=== PATIENT | female | born 1950 | race Caucasian/White ===

== ENCOUNTER 2016-10-15 09:49 | Emergency (ER) | payer OTHER ==
[~2016-10-15] VITALS: Ht 157.5 cm; Wt 93.1 kg
[~2016-10-15 09:49] MED LIST: ATENOLOL50 M1 NG; CARTIA XT120 MG PO; CENTRUM SILVER1 EACH PO; CYCLOSPORINE; DARVOCET-N 1001 EAC1 PO; FERROGELS FORT1 EACH PO; FUROSEMIDE40 MG PO; IMURAN50 MG PO; OMEGA 3 1,0001 EAC1 PO; OSCAL, OYSTER500 MG PO; PREVACID30 MG PO; PROZAC20 MG PO; TRILIPIX135 MG PO; XANAX0.5 MG PO; ZETIA10 MG PO; ZOCOR40 MG PO; ZYRTEC10 M2 PO
[2016-10-15 11:50] LABS: EOSINOPHIL (%) 0.3 % (0-5); HEMATOCRIT 36.2 % (36.0-46.0); IMMATURE GRANULOCYTE (%) 0.2 % (0.0-0.7); IMMATURE GRANULOCYTE COUNT 0.1 K/uL; LYMPHOCYTE COUNT 0.7 K/uL (1.0-2.8); MCH 29.3 PG (29.0-34.0); MCHC 31.2 G/DL (30.0-36.0); MCV 93.8 FL (83-99); MEAN PLAT.VOLUME 10.1 uM^3 (9.5-12.4); MONOCYTE (%) 4.2 % (3-12); MONOCYTE COUNT 0.3 K/uL (0-0.8); NEUTROPHIL (%) 83.3 % (45-76); NEUTROPHIL COUNT 5.2 K/uL (1.8-6.4); PLATELET COUNT 149 K/uL (156-360); RBC DIS.WIDTH-SD 46.1 % (39-53); RED BLOOD COUNT 3.86 M/uL (3.80-5.20); WHITE BLOOD COUNT 6.2 K/uL (4.1-10.2)
[2016-10-15 12:00] LABS: CHLORIDE 110 mEq/L (99-109); INTER. NORMALIZED RATIO 1.1; POTASSIUM 5.4 mEq/L (3.7-5.4); PROTHROMBIN TIME 11.4 (9.2-11.2); PTT 25.8 (25-32); SODIUM 139 mEq/L (136-147)
[2016-10-15 12:02] LABS: GLUCOSE 149 mg/dL (70-99)
[2016-10-15 12:04] LABS: ANION GAP 13 MEQ/L (2-14)
[2016-10-15 12:06] LABS: GFR ESTIMATE (CALCULATED) 11 mL/min/
[2016-10-15 12:07] LABS: UREA NITROGEN (BUN) 95 mg/dL (9-23)
[2016-10-15 12:11] LABS: TROP-I INTERPRETATION NEGATIVE; TROPONIN-I < 0.01 ng/mL (0.0-0.30)
[2016-10-15 12:13] LABS: ADD MIUA? YES; BILIRUBIN NEGATIVE; BLOOD NEGATIVE; COLOR YELLOW ((YELLOW)); GLUCOSE (STRIP) NEGATIVE; KETONES NEGATIVE; LEUKOCYTES NEGATIVE; NITRITE NEGATIVE; PROTEIN (STRIP) >=300; SPECIFIC GRAVITY 1.013 (1.000-1.030); UROBILINOGEN 0.2 MG/DL (0.2-1.0)
[2016-10-15 12:35] LABS: BACTERIA NONE SEEN; CASTS NONE SEEN /LPF; CRYSTALS NONE SEEN; EPITHELIAL CELLS RARE; MUCUS NONE SEEN; PATHOLOGICAL CAST NONE SEEN; RED BLOOD CELLS 0-5 /HPF (0-5); SMALL ROUND CELL NONE SEEN; UCUL ADDED? NO; WHITE BLOOD CELLS 0-5 /HPF (0-5); YEAST-LIKE CELL NONE SEEN
[2016-10-15 14:29] VITALS: BP 167/72
[2016-11-04] MEDS ORDERED: IRON325 M1 PO (09:14)
[2016-11-04] MEDS ORDERED: ZETIA10 MG PO (09:14)
[2016-11-04] MEDS ORDERED: ZYRTEC10 M2 PO (09:14)
[2016-11-04] MEDS ORDERED: ZOCOR10 MG PO (09:15)
[2016-11-04] MEDS ORDERED: OMEGA 3 500 SO1 EACH PO (09:16)
[2016-11-04] MEDS ORDERED: PROZAC20 MG PO (09:16)
[2016-11-04] MEDS ORDERED: PREVACID30 MG PO (09:17)
[2016-11-04] MEDS ORDERED: OS-CAL 500+D31 EACH PO (09:17)
[2016-11-04] MEDS ORDERED: XANAX0.5 MG PO (09:17)
[2016-11-04] MEDS ORDERED: IMURAN50 MG PO (09:18)
[2016-11-04] MEDS ORDERED: CYCLOSPORINE25 M2 PO ×2 (09:19)
[2016-11-04] MEDS ORDERED: BYSTOLIC10 MG PO (09:19)
[2016-11-04] MEDS ORDERED: AMARYL1 MG PO (09:20)
[2016-11-04] MEDS ORDERED: ISOSORBIDE DINI20 MG PO (09:20)
[2016-11-04] MEDS ORDERED: HYTRIN5 MG PO (09:21)
[2016-11-04] MEDS ORDERED: ZOFRAN4 MG PO (09:21)
[2016-11-04] MEDS ORDERED: APRESOLINE100 MG PO (09:21)
[2016-11-04] MEDS ORDERED: CYANOCOBALAM1000 MCG PO (09:22)
[2016-11-04] MEDS ORDERED: BUMEX1 MG PO (09:22)
[2016-11-04] MEDS ORDERED: NORCO 5/3251 TABLET PO (09:22)
== END 2016-10-15 14:50 | disposition home or self-care (01) ==
LOC: EME → EDBD 09:49 → EME 14:50
PROVIDERS: Emergency Medicine
DX: E16.1 Other hypoglycemia (principal); E11.9 Type 2 diabetes mellitus without complications; N19 Unspecified kidney failure; Z94.0 Kidney transplant status; R06.02 Shortness of breath; I10 Essential (primary) hypertension; G89.29 Other chronic pain
CPT/HCPCS: 70450; 71010; 80048; 81003; 82948; 83735; 84484; 85025; 85610; 85730; 93005; 99281; 99284

== ENCOUNTER 2016-11-06 07:25 | Day surgery (SDC) | payer OTHER ==
[~2016-11-06] VITALS: Ht 157.5 cm; Wt 91.0 kg
[~2016-11-06 07:25] MED LIST changes: +AMARYL1 MG PO; +APRESOLINE100 MG PO; +BUMEX1 MG PO; +BYSTOLIC10 MG PO; +CYANOCOBALAM1000 MCG PO; +CYCLOSPORINE25 M2 PO; +HYTRIN5 MG PO; +IRON325 M1 PO; +ISOSORBIDE DINI20 MG PO; +NORCO 5/3251 TABLET PO; +OMEGA 3 500 SO1 EACH PO; +OS-CAL 500+D31 EACH PO; +ZOCOR10 MG PO; +ZOFRAN4 MG PO
[2016-11-06 08:03] VITALS: BP 151/76
[2016-11-06 08:21] LABS: HEMATOCRIT 33.5 % (36.0-46.0); MCHC 30.4 G/DL (30.0-36.0); PLATELET COUNT 192 K/uL (156-360); RBC DIS.WIDTH-CV 14.4 % (11.8-14.6); RBC DIS.WIDTH-SD 48.9 % (39-53); RED BLOOD COUNT 3.64 M/uL (3.80-5.20); WHITE BLOOD COUNT 6.1 K/uL (4.1-10.2)
[2016-11-06 09:01] LABS: ANION GAP 11 MEQ/L (2-14); CHLORIDE 107 MEQ/L (99-109); GFR ESTIMATE (CALCULATED) 17 mL/min/; GLUCOSE 110 mg/dL (70-99); POTASSIUM 4.6 MEQ/L (3.7-5.4); SAMPLE HEMOLYSIS CHECK 0; SAMPLE ICTERIC CHECK 0; SAMPLE LIPEMIA CHECK 0; SODIUM 138 MEQ/L (136-147); UREA NITROGEN (BUN) 66 mg/dL (9-23)
[2016-11-06 11:50] VITALS: BP 140/72
[2016-11-06 12:58] VITALS: BP 155/73
== END 2016-11-06 13:15 | disposition home or self-care (01) ==
LOC: SDC 07:25
PROVIDERS: Surgery
PROC: 03180JD Bypass Left Brachial Artery to Upper Arm Vein with Synthetic Substitute, Open Approach (ICD-10-PCS; principal; 2016-11-06)
DX: I12.0 Hypertensive chronic kidney disease with stage 5 chronic kidney disease or end stage renal disease (principal); E11.22 Type 2 diabetes mellitus with diabetic chronic kidney disease; N18.6 End stage renal disease; G47.30 Sleep apnea, unspecified; M19.90 Unspecified osteoarthritis, unspecified site; Z94.0 Kidney transplant status; E66.9 Obesity, unspecified; Z68.36 Body mass index [BMI] 36.0-36.9, adult; Z96.649 Presence of unspecified artificial hip joint; Z79.84 Long term (current) use of oral hypoglycemic drugs; Z88.0 Allergy status to penicillin; Z88.5 Allergy status to narcotic agent; Z88.6 Allergy status to analgesic agent; Z88.8 Allergy status to other drugs, medicaments and biological substances; Z91.041 Radiographic dye allergy status; Z82.49 Family history of ischemic heart disease and other diseases of the circulatory system; Z82.3 Family history of stroke; Z80.3 Family history of malignant neoplasm of breast; Z80.1 Family history of malignant neoplasm of trachea, bronchus and lung
CPT/HCPCS: 80048; 82948; 85027; C2628; J0690; J1170; J1644; J2250; J2405; J2720; J3010

== ENCOUNTER 2016-12-04 07:07 | Day surgery (SDC) | payer OTHER ==
[~2016-12-04] VITALS: Ht 157.5 cm; Wt 93.9 kg
[2016-12-04 07:51] LABS: HEMATOCRIT 27.3 % (36.0-46.0); MCH 29.7 PG (29.0-34.0); MCHC 31.1 G/DL (30.0-36.0); MCV 95.5 FL (83-99); MEAN PLAT.VOLUME 10.2 uM^3 (9.5-12.4); PLATELET COUNT 149 K/uL (156-360); RBC DIS.WIDTH-CV 15.3 % (11.8-14.6); RBC DIS.WIDTH-SD 53.2 % (39-53); WHITE BLOOD COUNT 4.6 K/uL (4.1-10.2)
[2016-12-04 07:52] LABS: RED BLOOD COUNT 2.86 M/uL (3.80-5.20)
[2016-12-04 07:56] VITALS: BP 137/65
[2016-12-04 08:23] LABS: ANION GAP 11 MEQ/L (2-14); CHLORIDE 104 MEQ/L (99-109); GFR ESTIMATE (CALCULATED) 14 mL/min/; GLUCOSE 92 mg/dL (70-99); POTASSIUM 4.1 MEQ/L (3.7-5.4); SAMPLE HEMOLYSIS CHECK 0; SAMPLE ICTERIC CHECK 0; SAMPLE LIPEMIA CHECK 0; SODIUM 139 MEQ/L (136-147); UREA NITROGEN (BUN) 61 mg/dL (9-23)
[2016-12-04] MEDS ORDERED: NORCO 5/3251 TABLET PO (10:42)
[2016-12-04 11:11] LABS: POINT-OF-CARE METER ID UU13113675; POINT-OF-CARE USER ID 515036437
[2016-12-04 12:32] VITALS: BP 116/57
[2016-12-04 13:35] VITALS: BP 137/63
[2016-12-04 14:15] VITALS: BP 138/63
== END 2016-12-04 14:25 | disposition home or self-care (01) ==
LOC: SDC 07:07
PROVIDERS: Physician Assistant; Surgery
PROC: 0FT44ZZ Resection of Gallbladder, Percutaneous Endoscopic Approach (ICD-10-PCS; principal; 2016-12-04)
DX: K80.10 Calculus of gallbladder with chronic cholecystitis without obstruction (principal); E11.9 Type 2 diabetes mellitus without complications; K21.9 Gastro-esophageal reflux disease without esophagitis; I10 Essential (primary) hypertension; M19.90 Unspecified osteoarthritis, unspecified site
CPT/HCPCS: 74300; 80048; 82948; 85027; 88304; J0131; J0690; J1170; J2250; J2405; J2710; J3010; S0020

== ENCOUNTER 2016-12-26 14:51 | Inpatient (IN) | payer OTHER ==
[~2016-12-26] VITALS: Ht 157.5 cm; Wt 90.5 kg
[2016-12-26 15:29] LABS: HEMATOCRIT 26.7 % (36.0-46.0); MCH 30.8 PG (29.0-34.0); MCHC 30.7 G/DL (30.0-36.0); MEAN PLAT.VOLUME 10.2 uM^3 (9.5-12.4); RBC DIS.WIDTH-SD 55.5 % (39-53); RED BLOOD COUNT 2.66 M/uL (3.80-5.20); WHITE BLOOD COUNT 5.9 K/uL (4.1-10.2)
[2016-12-26 15:30] LABS: MCV 100.4 FL (83-99); PLATELET COUNT 194 K/uL (156-360)
[2016-12-26 15:37] LABS: CHLORIDE 104 mEq/L (99-109); POTASSIUM 4.4 mEq/L (3.7-5.4); SODIUM 140 mEq/L (136-147)
[2016-12-26 15:38] LABS: GLUCOSE 93 mg/dL (70-99)
[2016-12-26 15:40] LABS: ANION GAP 13 MEQ/L (2-14)
[2016-12-26 15:42] LABS: GFR ESTIMATE (CALCULATED) 12 mL/min/
[2016-12-26 15:43] LABS: UREA NITROGEN (BUN) 66 mg/dL (9-23)
[2016-12-26] MEDS ORDERED: ZUPLENZ8 MG PO (18:16)
[2016-12-26] MEDS ORDERED: KEFLEX500 MG PO (18:20)
[2016-12-26] MEDS ORDERED: NABI650T PO (18:21)
[2016-12-26] MEDS ORDERED: ROCALTROL0.25 MCG PO (18:21)
[2016-12-26] MEDS ORDERED: HYDROCORTISONE30 G1 TP (18:22)
[2016-12-26 18:50] LABS: TOTAL BILIRUBIN 0.5 mg/dL (0.0-1.0)
[2016-12-26 19:03] LABS: ALKALINE PHOSPHATASE 45 IU/L (3-129)
[2016-12-26 19:05] LABS: DIRECT BILIRUBIN 0.3 mg/dL (0.0-0.3)
[2016-12-26 19:16] VITALS: BP 154/82
[2016-12-26 19:37] LABS: Estimated Average Glucose 100 mg/dL (70-123); HEMOGLOBIN A1c (GLYCOHEMOGLOB) 5.1 % HGB (Below 5.7)
[2016-12-26 19:37] LABS: IRON 48 MCG/DL (35-150)
[2016-12-26 20:00] VITALS: BP 145/64
[2016-12-26 20:30] VITALS: BP 133/63
[2016-12-26 20:44] LABS: FERRITIN 556 NG/ML (10-291)
[2016-12-26 20:59] VITALS: BP 135/63
[2016-12-26 21:31] LABS: POINT-OF-CARE METER ID UU14162508
[2016-12-27 00:21] VITALS: BP 137/63
[2016-12-27 04:04] VITALS: BP 138/73
[2016-12-27 05:34] LABS: HEMATOCRIT 25.2 % (36.0-46.0); MCH 30.8 PG (29.0-34.0); MCHC 30.2 G/DL (30.0-36.0); MEAN PLAT.VOLUME 10.3 uM^3 (9.5-12.4); PLATELET COUNT 180 K/uL (156-360); RBC DIS.WIDTH-CV 15.1 % (11.8-14.6); RBC DIS.WIDTH-SD 55.8 % (39-53); RED BLOOD COUNT 2.47 M/uL (3.80-5.20); WHITE BLOOD COUNT 4.7 K/uL (4.1-10.2)
[2016-12-27 06:02] LABS: ANION GAP 11 MEQ/L (2-14); CHLORIDE 105 MEQ/L (99-109); GFR ESTIMATE (CALCULATED) 12 mL/min/; GLUCOSE 104 mg/dL (70-99); POTASSIUM 4.4 MEQ/L (3.7-5.4); SAMPLE HEMOLYSIS CHECK 0; SAMPLE ICTERIC CHECK 0; SAMPLE LIPEMIA CHECK 0; SODIUM 142 MEQ/L (136-147); UREA NITROGEN (BUN) 69 mg/dL (9-23)
[2016-12-27 07:03] LABS: POINT-OF-CARE METER ID UU14162508
[2016-12-27 07:21] VITALS: BP 151/80
[2016-12-27 10:05] LABS: ADD MIUA? YES; BILIRUBIN NEGATIVE; BLOOD NEGATIVE; COLOR YELLOW ((YELLOW)); GLUCOSE (STRIP) NEGATIVE; KETONES NEGATIVE; LEUKOCYTES NEGATIVE; NITRITE NEGATIVE; PROTEIN (STRIP) 100; SPECIFIC GRAVITY 1.009 (1.000-1.030); UROBILINOGEN 0.2 MG/DL (0.2-1.0)
[2016-12-27 11:11] LABS: HBSG INDEX 0.28
[2016-12-27 11:12] LABS: AHBS INDEX 0.03; HEPATITIS B SURFACE ANTIBODY Nonreactive
[2016-12-27 11:22] LABS: BACTERIA RARE /HPF; EPITHELIAL CELLS RARE /HPF; GRANULAR CASTS 0-5 /LPF; HYALINE CASTS 0-5 /LPF; MUCUS TRACE /LPF; RED BLOOD CELLS 0-5 /HPF (0-5); UCUL ADDED? NO; WHITE BLOOD CELLS 0-5 /HPF (0-5)
[2016-12-27 12:57] LABS: POINT-OF-CARE METER ID UU14162508
[2016-12-27 16:02] LABS: POINT-OF-CARE METER ID UU14162508
[2016-12-27 16:14] VITALS: BP 148/69
[2016-12-27 20:00] VITALS: BP 150/68
[2016-12-27 22:19] LABS: POINT-OF-CARE METER ID UU14162508
[2016-12-28] VITALS (7 sets, daily range): BP systolic 130–173; BP diastolic 64–79
[2016-12-28 06:12] LABS: EOSINOPHIL (%) 3.7 % (0-5); EOSINOPHIL COUNT 0.2 K/uL (0-0.3); HEMATOCRIT 28.9 % (36.0-46.0); IMMATURE GRANULOCYTE (%) 0.8 % (0.0-0.7); INSTRUMENT ABS NEUTROPHIL CT 3.6 K/uL; MCH 30.6 PG (29.0-34.0); MCHC 29.8 G/DL (30.0-36.0); MCV 102.8 FL (83-99); MONOCYTE COUNT 0.4 K/uL (0-0.8); NEUTROPHIL (%) 69.4 % (45-76); NEUTROPHIL COUNT 3.6 K/uL (1.8-6.4); NRBC (%) 0.4 /100 WBC (0-0); PLATELET COUNT 192 K/uL (156-360); RBC DIS.WIDTH-CV 14.9 % (11.8-14.6); RBC DIS.WIDTH-SD 56.6 % (39-53); RED BLOOD COUNT 2.81 M/uL (3.80-5.20); WHITE BLOOD COUNT 5.1 K/uL (4.1-10.2)
[2016-12-28 06:43] LABS: ALKALINE PHOSPHATASE 44 IU/L (3-129); ANION GAP 9 MEQ/L (2-14); CHLORIDE 102 MEQ/L (99-109); GFR ESTIMATE (CALCULATED) 17 mL/min/; GLUCOSE 109 mg/dL (70-99); SAMPLE HEMOLYSIS CHECK 0; SAMPLE ICTERIC CHECK 0; SAMPLE LIPEMIA CHECK 0; SODIUM 139 MEQ/L (136-147); TOTAL BILIRUBIN 0.6 MG/DL (0.0-1.0); UREA NITROGEN (BUN) 36 mg/dL (9-23)
[2016-12-28 06:52] LABS: ANION GAP 9 MEQ/L (2-14); CHLORIDE 102 MEQ/L (99-109); GFR ESTIMATE (CALCULATED) 17 mL/min/; GLUCOSE 109 mg/dL (70-99); IRON 61 MCG/DL (35-150); SAMPLE HEMOLYSIS CHECK 0; SAMPLE ICTERIC CHECK 0; SAMPLE LIPEMIA CHECK 0; SODIUM 139 MEQ/L (136-147); UREA NITROGEN (BUN) 35 mg/dL (9-23); URIC ACID 6.4 mg/dL (3.1-9.2)
[2016-12-28 08:57] LABS: INTACT PARATHYROID HORMONE 282 pg/mL (10-69)
[2016-12-28 09:23] LABS: EOSINOPHIL (%) 2.6 % (0-5); EOSINOPHIL COUNT 0.1 K/uL (0-0.3); HEMATOCRIT 26.4 % (36.0-46.0); IMMATURE GRANULOCYTE COUNT 0.1 K/uL; INSTRUMENT ABS NEUTROPHIL CT 3.6 K/uL; LYMPHOCYTE COUNT 0.8 K/uL (1.0-2.8); MCH 31.7 PG (29.0-34.0); MCHC 31.1 G/DL (30.0-36.0); MCV 101.9 FL (83-99); MONOCYTE (%) 7.4 % (3-12); MONOCYTE COUNT 0.4 K/uL (0-0.8); NEUTROPHIL COUNT 3.6 K/uL (1.8-6.4); NRBC (%) 0.6 /100 WBC (0-0); RBC DIS.WIDTH-SD 55.8 % (39-53); RED BLOOD COUNT 2.59 M/uL (3.80-5.20)
[2016-12-28 09:47] LABS: MEAN PLAT.VOLUME 11.3 uM^3 (9.5-12.4); PLATELET COUNT 177 K/uL (156-360)
[2016-12-29 03:34] VITALS: BP 147/70
[2016-12-29 06:50] VITALS: BP 156/72
[2016-12-29 08:08] LABS: EOSINOPHIL (%) 3.4 % (0-5); EOSINOPHIL COUNT 0.2 K/uL (0-0.3); IMMATURE GRANULOCYTE (%) 1.5 % (0.0-0.7); IMMATURE GRANULOCYTE COUNT 0.1 K/uL; INSTRUMENT ABS NEUTROPHIL CT 3.3 K/uL; LYMPHOCYTE COUNT 0.8 K/uL (1.0-2.8); MCH 30.7 PG (29.0-34.0); MCHC 29.6 G/DL (30.0-36.0); MCV 103.4 FL (83-99); MEAN PLAT.VOLUME 10.6 uM^3 (9.5-12.4); MONOCYTE (%) 8.2 % (3-12); MONOCYTE COUNT 0.4 K/uL (0-0.8); NEUTROPHIL (%) 69.3 % (45-76); NEUTROPHIL COUNT 3.3 K/uL (1.8-6.4); NRBC (%) 0.6 /100 WBC (0-0); PLATELET COUNT 174 K/uL (156-360); RBC DIS.WIDTH-SD 55.6 % (39-53); RED BLOOD COUNT 2.61 M/uL (3.80-5.20); WHITE BLOOD COUNT 4.8 K/uL (4.1-10.2)
[2016-12-29 08:30] LABS: ANION GAP 7 MEQ/L (2-14); CHLORIDE 102 MEQ/L (99-109); GFR ESTIMATE (CALCULATED) 21 mL/min/; GLUCOSE 98 mg/dL (70-99); POTASSIUM 4.1 MEQ/L (3.7-5.4); SAMPLE HEMOLYSIS CHECK 0; SAMPLE ICTERIC CHECK 0; SAMPLE LIPEMIA CHECK 0; SODIUM 139 MEQ/L (136-147); UREA NITROGEN (BUN) 19 mg/dL (9-23)
[2016-12-29 11:57] VITALS: BP 184/86
[2016-12-29 14:27] LABS: UR CREATININE CONCENTRATION 43.4 MG/DL
[2016-12-29 16:05] VITALS: BP 168/74
[2016-12-29 16:09] LABS: POINT-OF-CARE METER ID UU14162508
[2016-12-29 22:04] LABS: POINT-OF-CARE METER ID UU14162508
[2016-12-29 23:30] VITALS: BP 161/70
[2016-12-30 07:25] VITALS: BP 177/84
[2016-12-30 08:56] LABS: EOSINOPHIL (%) 3.7 % (0-5); EOSINOPHIL COUNT 0.2 K/uL (0-0.3); HEMATOCRIT 26.3 % (36.0-46.0); IMMATURE GRANULOCYTE (%) 1.4 % (0.0-0.7); IMMATURE GRANULOCYTE COUNT 0.1 K/uL; INSTRUMENT ABS NEUTROPHIL CT 3.6 K/uL; LYMPHOCYTE COUNT 0.8 K/uL (1.0-2.8); MCV 103.1 FL (83-99); MEAN PLAT.VOLUME 10.7 uM^3 (9.5-12.4); MONOCYTE (%) 9.3 % (3-12); MONOCYTE COUNT 0.5 K/uL (0-0.8); NEUTROPHIL (%) 69.8 % (45-76); NEUTROPHIL COUNT 3.6 K/uL (1.8-6.4); NRBC (%) 0.6 /100 WBC (0-0); PLATELET COUNT 165 K/uL (156-360); RBC DIS.WIDTH-CV 14.8 % (11.8-14.6); RBC DIS.WIDTH-SD 55.2 % (39-53); RED BLOOD COUNT 2.55 M/uL (3.80-5.20); WHITE BLOOD COUNT 5.1 K/uL (4.1-10.2)
[2016-12-30 09:07] LABS: ANION GAP 9 MEQ/L (2-14); CHLORIDE 100 MEQ/L (99-109); POTASSIUM 3.8 MEQ/L (3.7-5.4); SAMPLE HEMOLYSIS CHECK 0; SAMPLE ICTERIC CHECK 0; SAMPLE LIPEMIA CHECK 0; SODIUM 136 MEQ/L (136-147); TOTAL BILIRUBIN 0.5 MG/DL (0.0-1.0)
[2016-12-30 09:13] LABS: ALKALINE PHOSPHATASE 41 IU/L (3-129); GFR ESTIMATE (CALCULATED) 18 mL/min/; GLUCOSE 105 mg/dL (70-99); UREA NITROGEN (BUN) 21 mg/dL (9-23)
[2016-12-30 09:55] LABS: ANION GAP 9 MEQ/L (2-14); CHLORIDE 100 MEQ/L (99-109); GFR ESTIMATE (CALCULATED) 18 mL/min/; GLUCOSE 105 mg/dL (70-99); POTASSIUM 3.8 MEQ/L (3.7-5.4); SAMPLE HEMOLYSIS CHECK 0; SAMPLE ICTERIC CHECK 0; SAMPLE LIPEMIA CHECK 0; SODIUM 136 MEQ/L (136-147); UREA NITROGEN (BUN) 21 mg/dL (9-23)
[2016-12-30 12:00] VITALS: BP 185/81
[2016-12-30 12:12] LABS: POINT-OF-CARE METER ID UU14162508
[2016-12-30 17:18] VITALS: BP 180/86
[2016-12-30 17:27] LABS: POINT-OF-CARE METER ID UU14162508
[2016-12-30 19:47] VITALS: BP 175/78
[2016-12-30 22:02] LABS: POINT-OF-CARE METER ID UU14162508
[2016-12-30 23:30] VITALS: BP 153/70
[2016-12-31 03:24] VITALS: BP 137/64
[2016-12-31 07:04] VITALS: BP 156/72
[2016-12-31 07:10] LABS: EOSINOPHIL (%) 2.8 % (0-5); EOSINOPHIL COUNT 0.2 K/uL (0-0.3); IMMATURE GRANULOCYTE (%) 1.4 % (0.0-0.7); IMMATURE GRANULOCYTE COUNT 0.1 K/uL; INSTRUMENT ABS NEUTROPHIL CT 3.9 K/uL; LYMPHOCYTE COUNT 1.1 K/uL (1.0-2.8); MCHC 29.6 G/DL (30.0-36.0); MCV 104.8 FL (83-99); MEAN PLAT.VOLUME 10.3 uM^3 (9.5-12.4); MONOCYTE (%) 9.5 % (3-12); MONOCYTE COUNT 0.6 K/uL (0-0.8); NEUTROPHIL (%) 67.6 % (45-76); NEUTROPHIL COUNT 3.9 K/uL (1.8-6.4); NRBC (%) 0.3 /100 WBC (0-0); PLATELET COUNT 172 K/uL (156-360); RBC DIS.WIDTH-CV 14.8 % (11.8-14.6); RBC DIS.WIDTH-SD 56.1 % (39-53); RED BLOOD COUNT 2.48 M/uL (3.80-5.20); WHITE BLOOD COUNT 5.8 K/uL (4.1-10.2)
[2016-12-31 07:12] LABS: POINT-OF-CARE METER ID UU14162508
[2016-12-31 07:39] LABS: ANION GAP 7 MEQ/L (2-14); CHLORIDE 102 MEQ/L (99-109); GFR ESTIMATE (CALCULATED) 19 mL/min/; GLUCOSE 85 mg/dL (70-99); SAMPLE HEMOLYSIS CHECK 0; SAMPLE ICTERIC CHECK 0; SAMPLE LIPEMIA CHECK 0; SODIUM 140 MEQ/L (136-147); UREA NITROGEN (BUN) 12 mg/dL (9-23)
[2016-12-31 11:46] VITALS: BP 138/66
[2016-12-31 11:56] LABS: POINT-OF-CARE METER ID UU14162508
[2016-12-31 16:01] VITALS: BP 136/63
[2016-12-31 16:05] LABS: POINT-OF-CARE METER ID UU14162508
[2016-12-31 19:38] VITALS: BP 142/70
[2016-12-31 21:46] LABS: POINT-OF-CARE METER ID UU14162508
[2017-01-01 00:21] VITALS: BP 143/68
[2017-01-01 03:44] VITALS: BP 150/74
[2017-01-01 06:37] LABS: POINT-OF-CARE METER ID UU14162508
[2017-01-01 07:46] LABS: EOSINOPHIL (%) 3.7 % (0-5); EOSINOPHIL COUNT 0.2 K/uL (0-0.3); HEMATOCRIT 29.5 % (36.0-46.0); IMMATURE GRANULOCYTE (%) 1.1 % (0.0-0.7); IMMATURE GRANULOCYTE COUNT 0.1 K/uL; INSTRUMENT ABS NEUTROPHIL CT 3.8 K/uL; LYMPHOCYTE COUNT 0.8 K/uL (1.0-2.8); MCH 31.3 PG (29.0-34.0); MCHC 29.8 G/DL (30.0-36.0); MEAN PLAT.VOLUME 10.4 uM^3 (9.5-12.4); MONOCYTE (%) 8.5 % (3-12); MONOCYTE COUNT 0.5 K/uL (0-0.8); NEUTROPHIL (%) 70.5 % (45-76); NEUTROPHIL COUNT 3.8 K/uL (1.8-6.4); NRBC (%) 0.6 /100 WBC (0-0); PLATELET COUNT 179 K/uL (156-360); RBC DIS.WIDTH-CV 15.1 % (11.8-14.6); RBC DIS.WIDTH-SD 56.7 % (39-53); RED BLOOD COUNT 2.81 M/uL (3.80-5.20); WHITE BLOOD COUNT 5.4 K/uL (4.1-10.2)
[2017-01-01 08:00] VITALS: BP 134/62
[2017-01-01 08:09] LABS: ANION GAP 8 MEQ/L (2-14); CHLORIDE 98 MEQ/L (99-109); GFR ESTIMATE (CALCULATED) 16 mL/min/; GLUCOSE 105 mg/dL (70-99); SAMPLE HEMOLYSIS CHECK 0; SAMPLE ICTERIC CHECK 0; SAMPLE LIPEMIA CHECK 0; SODIUM 136 MEQ/L (136-147); UREA NITROGEN (BUN) 16 mg/dL (9-23)
[2017-01-01 12:00] VITALS: BP 124/57
[2017-01-01 12:25] LABS: POINT-OF-CARE METER ID UU14162508
[2017-01-01 16:04] VITALS: BP 160/70
[2017-01-01 16:21] LABS: POINT-OF-CARE METER ID UU14162508
[2017-01-01 18:45] LABS: POINT-OF-CARE METER ID UU14162508
[2017-01-01 21:38] LABS: POINT-OF-CARE METER ID UU14162508
[2017-01-01 23:15] VITALS: BP 134/62
[2017-01-02 07:16] LABS: POINT-OF-CARE METER ID UU14162508
[2017-01-02 07:57] LABS: EOSINOPHIL (%) 4.5 % (0-5); EOSINOPHIL COUNT 0.2 K/uL (0-0.3); HEMATOCRIT 28.7 % (36.0-46.0); IMMATURE GRANULOCYTE COUNT 0.1 K/uL; INSTRUMENT ABS NEUTROPHIL CT 3.3 K/uL; LYMPHOCYTE COUNT 0.9 K/uL (1.0-2.8); MCH 30.7 PG (29.0-34.0); MCHC 29.3 G/DL (30.0-36.0); MCV 104.7 FL (83-99); MEAN PLAT.VOLUME 10.4 uM^3 (9.5-12.4); MONOCYTE (%) 10.4 % (3-12); MONOCYTE COUNT 0.5 K/uL (0-0.8); NEUTROPHIL (%) 66.4 % (45-76); NEUTROPHIL COUNT 3.3 K/uL (1.8-6.4); PLATELET COUNT 175 K/uL (156-360); RBC DIS.WIDTH-CV 15.3 % (11.8-14.6); RED BLOOD COUNT 2.74 M/uL (3.80-5.20); WHITE BLOOD COUNT 4.9 K/uL (4.1-10.2)
[2017-01-02 08:00] VITALS: BP 151/68
[2017-01-02 08:28] LABS: ANION GAP 13 MEQ/L (2-14); CHLORIDE 101 MEQ/L (99-109); GFR ESTIMATE (CALCULATED) 21 mL/min/; GLUCOSE 93 mg/dL (70-99); POTASSIUM 3.9 MEQ/L (3.7-5.4); SAMPLE HEMOLYSIS CHECK 0; SAMPLE ICTERIC CHECK 0; SAMPLE LIPEMIA CHECK 0; SODIUM 140 MEQ/L (136-147); UREA NITROGEN (BUN) 10 mg/dL (9-23)
[2017-01-02 12:24] LABS: POINT-OF-CARE METER ID UU14162508
[2017-01-02 12:41] LABS: POC NON-PRINT COM 1 ND
[2017-01-02] MEDS ORDERED: CEFTIN500 MG PO (14:02)
[2017-01-02] MEDS ORDERED: FUROSEMIDE40 MG PO (14:02)
[2017-01-02] MEDS ORDERED: APRESOLINE100 MG PO (14:02)
[2017-01-02] MEDS ORDERED: SYNTHROID50 MCG PO ×2 (14:02→14:11)
== END 2017-01-02 15:29 | disposition home health service (06) | DRG 640 ==
LOC: EME 14:51 → EDOF 18:04 → 2EAST 18:04
PROVIDERS: Hospitalist; Internal Medicine; Internal Medicine Gastroenterology; Internal Medicine Nephrology
PROC: 5A09357 Assistance with Respiratory Ventilation, Less than 24 Consecutive Hours, Continuous Positive Airway Pressure (ICD-10-PCS; 2016-12-26)
PROC: 5A1D60Z (ICD-10-PCS; principal; 2016-12-27)
DX: E87.70 Fluid overload, unspecified (principal); N18.6 End stage renal disease; L03.116 Cellulitis of left lower limb; I12.0 Hypertensive chronic kidney disease with stage 5 chronic kidney disease or end stage renal disease; Z68.41 Body mass index [BMI] 40.0-44.9, adult; T86.12 Kidney transplant failure; L03.115 Cellulitis of right lower limb; N17.9 Acute kidney failure, unspecified; G47.33 Obstructive sleep apnea (adult) (pediatric); D63.1 Anemia in chronic kidney disease; E11.22 Type 2 diabetes mellitus with diabetic chronic kidney disease; E66.9 Obesity, unspecified; S30.1XXA Contusion of abdominal wall, initial encounter; M19.90 Unspecified osteoarthritis, unspecified site; F32.9 Major depressive disorder, single episode, unspecified; F41.9 Anxiety disorder, unspecified; I27.2 Other secondary pulmonary hypertension; I07.1 Rheumatic tricuspid insufficiency; E78.5 Hyperlipidemia, unspecified
CPT/HCPCS: 71020; 74176; 80048; 80053; 80069; 80076; 80158 90; 81003; 82272; 82306; 82570; 82607; 82728; 82948; 83036; 83540; 83880; 83970; 84156; 84443; 84466; 84550; 85025; 85025 91; 85027; 86706; 86850; 86900; 86901; 87340; 93005; 93306; 93970; 94660; 99281; 99285; J0690; J0881; J1644; J1815; J1940; J2405; J7050; J7500; J7515

== ENCOUNTER 2017-03-24 10:52 | Observation (INO) | payer OTHER ==
[~2017-03-24] VITALS: Ht 157.5 cm; Wt 84.7 kg
[~2017-03-24 10:52] MED LIST changes: +CEFTIN500 MG PO; +HYDROCORTISONE30 G1 TP; +KEFLEX500 MG PO; +NABI650T PO; +ROCALTROL0.25 MCG PO; +SYNTHROID50 MCG PO; +ZUPLENZ8 MG PO
[2017-03-24 12:03] LABS: EOSINOPHIL COUNT 0.5 K/uL (0-0.3); HEMATOCRIT 37.2 % (36.0-46.0); IMMATURE GRANULOCYTE (%) 0.2 % (0.0-0.7); INSTRUMENT ABS NEUTROPHIL CT 2.5 K/uL; LYMPHOCYTE COUNT 1.1 K/uL (1.0-2.8); MCH 30.2 PG (29.0-34.0); MCHC 32.3 G/DL (30.0-36.0); MCV 93.5 FL (83-99); MONOCYTE (%) 10.7 % (3-12); MONOCYTE COUNT 0.5 K/uL (0-0.8); NEUTROPHIL (%) 55.3 % (45-76); NEUTROPHIL COUNT 2.5 K/uL (1.8-6.4); PLATELET COUNT 117 K/uL (156-360); RBC DIS.WIDTH-CV 13.5 % (11.8-14.6); RBC DIS.WIDTH-SD 46.2 % (39-53); RED BLOOD COUNT 3.98 M/uL (3.80-5.20); WHITE BLOOD COUNT 4.5 K/uL (4.1-10.2)
[2017-03-24 12:14] LABS: CHLORIDE 98 mEq/L (99-109); SODIUM 138 mEq/L (136-147)
[2017-03-24 12:15] LABS: GLUCOSE 80 mg/dL (70-99); INTER. NORMALIZED RATIO 1.1; PROTHROMBIN TIME 11.4 (9.2-11.2); PTT 26.7 (25-32)
[2017-03-24 12:17] LABS: ANION GAP 11 MEQ/L (2-14)
[2017-03-24 12:19] LABS: GFR ESTIMATE (CALCULATED) 19 mL/min/
[2017-03-24 12:20] LABS: UREA NITROGEN (BUN) 38 mg/dL (9-23)
[2017-03-24 12:24] LABS: TROP-I INTERPRETATION NEGATIVE; TROPONIN-I < 0.01 ng/mL (0.0-0.30)
[2017-03-24] MEDS ORDERED: RENAL-VITE TAB0.8 MG PO (13:40)
[2017-03-24] MEDS ORDERED: APRESOLINE100 MG PO (13:42)
[2017-03-24] MEDS ORDERED: CORTIZONE-10 PL57 GM TP (13:43)
[2017-03-24] MEDS ORDERED: LEVO-T25 MCG PO (13:44)
[2017-03-24] MEDS ORDERED: OMEPRAZOLE40 M1 PO (13:44)
[2017-03-24] MEDS ORDERED: ISONIAZID,INH300 MG PO (13:46)
[2017-03-24] MEDS ORDERED: RENVELA800 MG PO (13:47)
[2017-03-24 17:03] VITALS: BP 164/79
[2017-03-24 19:07] VITALS: BP 163/75
[2017-03-24 19:18] LABS: TROP-I INTERPRETATION NEGATIVE; TROPONIN-I 0.01 ng/mL (0.0-0.30)
[2017-03-24 23:35] VITALS: BP 184/83
[2017-03-25 00:47] LABS: TROP-I INTERPRETATION NEGATIVE; TROPONIN-I < 0.01 ng/mL (0.0-0.30)
[2017-03-25 04:17] VITALS: BP 148/68
[2017-03-25 09:12] LABS: POINT-OF-CARE METER ID UU13113831
[2017-03-25 09:16] VITALS: BP 159/81
== END 2017-03-25 11:25 | disposition home or self-care (01) ==
LOC: EME 10:52 → 5WEST 14:30 → EDOF 14:30 → 5WEST 16:58
PROVIDERS: Emergency Medicine; Internal Medicine
DX: R07.89 Other chest pain (principal); R20.0 Anesthesia of skin; K21.9 Gastro-esophageal reflux disease without esophagitis; T86.12 Kidney transplant failure; E11.22 Type 2 diabetes mellitus with diabetic chronic kidney disease; I12.0 Hypertensive chronic kidney disease with stage 5 chronic kidney disease or end stage renal disease; N18.6 End stage renal disease; Z99.2 Dependence on renal dialysis; G47.33 Obstructive sleep apnea (adult) (pediatric); E78.5 Hyperlipidemia, unspecified; E66.9 Obesity, unspecified; N25.81 Secondary hyperparathyroidism of renal origin; I45.10 Unspecified right bundle-branch block; I36.1 Nonrheumatic tricuspid (valve) insufficiency; I27.2 Other secondary pulmonary hypertension; Z68.34 Body mass index [BMI] 34.0-34.9, adult
CPT/HCPCS: 71010; 80048; 82948; 84484; 85025; 85610; 85730; 93005; 94799; 99281; 99285; G0378; J1644; J7500; J7515

== ENCOUNTER 2017-05-01 12:43 | Observation (INO) | payer OTHER ==
[~2017-05-01] VITALS: Ht 157.5 cm; Wt 83.0 kg
[~2017-05-01 12:43] MED LIST changes: +CORTIZONE-10 PL57 GM TP; +ISONIAZID,INH300 MG PO; +LEVO-T25 MCG PO; +OMEPRAZOLE40 M1 PO; +RENAL-VITE TAB0.8 MG PO; +RENVELA800 MG PO
[2017-05-01 13:48] LABS: HEMATOCRIT 33.5 % (36.0-46.0); MCH 29.8 PG (29.0-34.0); MCHC 32.2 G/DL (30.0-36.0); MCV 92.5 FL (83-99); MEAN PLAT.VOLUME 8.6 uM^3 (9.5-12.4); PLATELET COUNT 122 K/uL (156-360); RBC DIS.WIDTH-CV 13.8 % (11.8-14.6); RED BLOOD COUNT 3.62 M/uL (3.80-5.20); WHITE BLOOD COUNT 4.5 K/uL (4.1-10.2)
[2017-05-01 13:57] LABS: CHLORIDE 92 mEq/L (99-109); POTASSIUM 4.5 mEq/L (3.7-5.4); SODIUM 133 mEq/L (136-147)
[2017-05-01 13:59] LABS: GLUCOSE 102 mg/dL (70-99)
[2017-05-01 14:01] LABS: ANION GAP 11 MEQ/L (2-14)
[2017-05-01 14:03] LABS: GFR ESTIMATE (CALCULATED) 14 mL/min/
[2017-05-01 14:04] LABS: UREA NITROGEN (BUN) 41 mg/dL (9-23)
[2017-05-01 14:09] LABS: TROP-I INTERPRETATION NEGATIVE; TROPONIN-I < 0.01 ng/mL (0.0-0.30)
[2017-05-01] MEDS ORDERED: RENVELA800 MG PO ×2 (16:02→16:03)
[2017-05-01] MEDS ORDERED: RENAPLEX-D PO (16:03)
[2017-05-01] MEDS ORDERED: TRAMADOL HCL50 MG PO (16:04)
[2017-05-01 19:35] VITALS: BP 164/71
[2017-05-01 20:32] LABS: TROP-I INTERPRETATION NEGATIVE; TROPONIN-I < 0.01 ng/mL (0.0-0.30)
[2017-05-02 01:58] VITALS: BP 155/67
[2017-05-02 02:23] LABS: TROP-I INTERPRETATION NEGATIVE; TROPONIN-I < 0.01 ng/mL (0.0-0.30)
[2017-05-02 03:21] VITALS: BP 136/61
[2017-05-02 06:23] LABS: TROP-I INTERPRETATION NEGATIVE; TROPONIN-I < 0.01 ng/mL (0.0-0.30)
[2017-05-02 08:00] VITALS: BP 145/64
[2017-05-02] MEDS ORDERED: NITROSTAT0.4 MG SL (10:17)
== END 2017-05-02 11:04 | disposition home or self-care (01) ==
LOC: EME 12:43 → 5WEST 15:57 → EDOF 15:57 → 5WEST 18:09
PROVIDERS: Hospitalist; Internal Medicine; Internal Medicine Cardiovascular Disease
DX: R07.2 Precordial pain (principal); F32.9 Major depressive disorder, single episode, unspecified; K21.9 Gastro-esophageal reflux disease without esophagitis; E11.22 Type 2 diabetes mellitus with diabetic chronic kidney disease; Z99.2 Dependence on renal dialysis; N18.6 End stage renal disease; I12.0 Hypertensive chronic kidney disease with stage 5 chronic kidney disease or end stage renal disease; G47.33 Obstructive sleep apnea (adult) (pediatric); D64.9 Anemia, unspecified; E78.5 Hyperlipidemia, unspecified; E66.9 Obesity, unspecified; E21.3 Hyperparathyroidism, unspecified; Z88.0 Allergy status to penicillin; T86.12 Kidney transplant failure; I27.2 Other secondary pulmonary hypertension
CPT/HCPCS: 71020; 80048; 82948; 84484; 85027; 93005; 99281; 99285; G0378; J1644; J7500; J7515

== ENCOUNTER → 2018-03-26 | Outpatient (CLI) | payer MEDICARE, OTHER ==
[~2018-03-26] MED LIST changes: +NITROSTAT0.4 MG SL; +RENAPLEX-D PO; +TRAMADOL HCL50 MG PO
== END | disposition home or self-care (01) ==
LOC: CDC
DX: Z01.810 Encounter for preprocedural cardiovascular examination (principal); M67.441 Ganglion, right hand; M79.641 Pain in right hand
CPT/HCPCS: 93000

== ENCOUNTER 2018-04-08 13:05 | Day surgery (SDC) | payer OTHER ==
[~2018-04-08] VITALS: Ht 157.5 cm; Wt 90.0 kg
[~2018-04-08 13:05] MED LIST changes: +BIOTIN1000 MICRO PO; +FERRIC CITRATE210 MG PO; +PERCOCET 5/31 TABLET PO; +VITAMIN B-6100 MG PO
[2018-04-08 13:54] LABS: HEMATOCRIT 38.1 % (36.0-46.0); HEMOGLOBIN 12.3 G/DL (11.9-15.5)
[2018-04-08 14:09] VITALS: BP 144/76
[2018-04-08 14:16] LABS: CHLORIDE 91 MEQ/L (99-109); CREATININE 3.6 MG/DL (0.6-1.3); GFR ESTIMATE (CALCULATED) 13 mL/min/; GLUCOSE 107 mg/dL (70-99); POTASSIUM 4.6 MEQ/L (3.7-5.4); SODIUM 135 MEQ/L (136-147); UREA NITROGEN (BUN) 18 mg/dL (9-23)
[2018-04-08 16:32] VITALS: BP 169/76
[2018-04-08 17:30] VITALS: BP 175/77
== END 2018-04-08 17:45 | disposition home or self-care (01) ==
LOC: SDC
PROVIDERS: Orthopaedic Surgery Hand Surgery
PROC: 0LB50ZZ Excision of Right Lower Arm and Wrist Tendon, Open Approach (ICD-10-PCS; principal; 2018-04-08)
DX: M67.431 Ganglion, right wrist (principal); M65.841 Other synovitis and tenosynovitis, right hand; E11.22 Type 2 diabetes mellitus with diabetic chronic kidney disease; N18.5 Chronic kidney disease, stage 5; G47.30 Sleep apnea, unspecified; M19.90 Unspecified osteoarthritis, unspecified site; M06.9 Rheumatoid arthritis, unspecified; Q85.00 Neurofibromatosis, unspecified; Z96.641 Presence of right artificial hip joint; Z94.0 Kidney transplant status; Z90.710 Acquired absence of both cervix and uterus; Z91.041 Radiographic dye allergy status; Z88.8 Allergy status to other drugs, medicaments and biological substances
CPT/HCPCS: 80048; 82948; 85014; 85018; 87641; J1100; J2250; J2405; S0020